=== PATIENT | male | born 1975 | race African-American/Black ===

== ENCOUNTER 2023-11-15 09:07 | Emergency (ER) | payer OTHER ==
[~2023-11-15] VITALS: Ht 188 cm; Wt 86.4 kg
[2023-11-15 09:09] VITALS: BP 132/73; TEMP 98.2; O2SAT 100
[2023-11-15] MEDS ORDERED: AMLO1TAB25 PO (09:16)
[2023-11-15] MEDS ORDERED: OLOP5DRO17 OU (11:24)
== END 2023-11-15 11:37 | disposition home or self-care (01) ==
LOC: M ED 09:07
DX: H10.33 Unspecified acute conjunctivitis, bilateral (principal); I10 Essential (primary) hypertension; Z98.84 Bariatric surgery status; Z79.899 Other long term (current) drug therapy